=== PATIENT | female | born 1945 | race Caucasian/White ===

== ENCOUNTER 2018-10-19 11:55 | Emergency (ER) | payer OTHER ==
[~2018-10-19] VITALS: Ht 160 cm; Wt 90.7 kg
[2018-10-19] MEDS ORDERED: ZETIA10 MG (12:46)
[2018-10-19] MEDS ORDERED: ATORVASTATIN CA80 MG (12:46)
[2018-10-19] MEDS ORDERED: ATENOLOL50 MG (12:47)
[2018-10-19] MEDS ORDERED: LISINOPRIL10 MG (12:47)
[2018-10-19] MEDS ORDERED: ASPIRIN81 MG (12:47)
== END 2018-10-19 16:35 | disposition home or self-care (01) ==
LOC: ER 11:55
DX: K52.89 Other specified noninfective gastroenteritis and colitis (principal)

== ENCOUNTER 2022-03-04 14:32 | Inpatient (IN) | payer OTHER ==
[~2022-03-04] VITALS: Ht 162.6 cm; Wt 127.0 kg
[~2022-03-04 14:32] MED LIST: ASPIRIN81 MG; ATENOLOL50 MG; ATORVASTATIN CA80 MG; LISINOPRIL10 MG; ZETIA10 MG
--- NOTE | 2022-03-04 15:31 | NUR ---
PATIENT IS RECIEVED SAYING THAT SHE HAS EXTREME PAIN FROM CELLULITIS ON HER LEGS.
--- NOTE | 2022-03-04 17:27 | NUR ---
FEMINA ALERTA Y ORIENTADA X3 EVALUADA POR DR SONIA [place] [facility]. SE EDUCA A PTE Y REFIERE ENTENDER. SE COLECTAN MUESTRAS DE ALLY BAJO MEDIDAS ASEPTICAS Y SE ADMINISTRAN MEDICAMENTOS.
[2022-03-07] MEDS ORDERED: GABAPENTIN600 MG (11:07)
[2022-03-07] MEDS ORDERED: ALLOPURINOL100 MG (11:07)
[2022-03-07] MEDS ORDERED: TRAMADOL HCL50 MG (11:07)
[2022-03-07] MEDS ORDERED: NORVASC2.5 MG (11:08)
[2022-03-07] MEDS ORDERED: HYDROCHLOROTH12.5 MG (11:08)
== END 2022-03-20 14:45 | disposition home or self-care (01) | DRG 603 ==
LOC: ER 14:32 → SURH 19:27
PROVIDERS: ADMIT Internal Medicine; ATTEND Internal Medicine
PROC: 02HV33Z Insertion of Infusion Device into Superior Vena Cava, Percutaneous Approach (ICD-10-PCS; principal; 2022-03-06)
PROC: B54CZZZ Ultrasonography of Left Lower Extremity Veins (ICD-10-PCS; 2022-03-10)
DX: L03.116 Cellulitis of left lower limb (principal); L97.828 Non-pressure chronic ulcer of other part of left lower leg with other specified severity; B96.5 Pseudomonas (aeruginosa) (mallei) (pseudomallei) as the cause of diseases classified elsewhere; B95.2 Enterococcus as the cause of diseases classified elsewhere; I10 Essential (primary) hypertension; I73.9 Peripheral vascular disease, unspecified; Z20.822 Contact with and (suspected) exposure to COVID-19; M10.9 Gout, unspecified; E78.5 Hyperlipidemia, unspecified; E66.01 Morbid (severe) obesity due to excess calories